=== PATIENT | male | born 1995 | race Hispanic/Latino ===

== ENCOUNTER 2017-04-01 20:18 | Emergency (ER) | payer OTHER, SELFPAY ==
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
== END 2017-04-01 23:22 | disposition home or self-care (01) ==
LOC: ERS 20:18
DX: M54.2 Cervicalgia (principal); F17.210 Nicotine dependence, cigarettes, uncomplicated; V89.2XXA Person injured in unspecified motor-vehicle accident, traffic, initial encounter
CPT/HCPCS: 70450; 72125